=== PATIENT | female | born 1985 | race American Indian/Alaskan Native ===

== ENCOUNTER 2018-08-10 21:57 | Inpatient (IN) | payer MEDICAID ==
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
[2018-08-10 22:40] LABS: HEMOGLOBIN 12.6 g/dL (11.0-16.0); MEAN CELL VOLUME 86.9 fL (81.0-99.0); MEAN CORPUSCULAR HEMOGLOBIN 28.2 pg (27.0-31.0); RBC 4.46 Mil/uL (3.80-5.20); WHITE BLOOD COUNT 7.7 K/uL (4.8-10.8)
[2018-08-10 22:41] LABS: BASO % 0.5 % (0.0-2.0); EOS # 0.1 K/uL (0.0-0.7); EOS % 1.1 % (0.0-4.0); LYMPH # 2.5 K/uL (1.0-4.3); LYMPH % 32.8 % (20.0-40.0); MEAN CORPUSCULAR HGB CONC 32.5 g/dL (33.0-37.0); MEAN PLATELET VOLUME 7.3 fL (7.2-11.7); MONO # 0.5 K/uL (0.0-0.8); MONO % 6.7 % (0.0-10.0); NEUT # 4.6 K/uL (1.8-7.0); NEUT % 58.9 % (50.0-75.0); NRBC % 0.1 % (0.0-2.0)
[2018-08-10 22:52] LABS: ALB/GLOB RATIO 1.4 (1.0-2.1); ALBUMIN 4.2 g/dL (3.5-5.0); ALT/SGPT 17 U/L (9-52); AST/SGOT 22 U/L (14-36); BLOOD UREA NITROGEN 8 mg/dL (7-17); CALCIUM 9.7 mg/dl (8.6-10.4); GFR NON-AFRICAN AMERICAN > 60
[2018-08-10 23:00] LABS: HCG,QUALITATIVE URINE NEGATIVE (NEGATIVE)
[2018-08-10 23:04] LABS: SQUAMOUS EPITHIAL 1 /hpf (0-5); URINE BACTERIA FEW (<OCC); URINE BILIRUBIN NEGATIVE (NEGATIVE); URINE BLOOD NEGATIVE (NEGATIVE); URINE CLARITY Hazy (Clear); URINE COLOR Yellow (YELLOW); URINE GLUCOSE (UA) NORMAL (Normal); URINE LEUKOCYTE ESTERASE NEG Leu/uL (Negative); URINE PROTEIN NEGATIVE (NEGATIVE)
[2018-08-10 23:16] LABS: BARBITURATES, UR NEGATIVE (NEGATIVE); PHENCYCLIDINE, UR NEGATIVE (NEGATIVE)
[2018-08-10 23:17] LABS: BENZODIAZEPINES, UR POSITIVE (NEGATIVE); OPIATES, UR POSITIVE (NEGATIVE)
--- NOTE | 2018-08-11 08:49 | PCM.BM ---
<Shanell Driver Forrest - Last Filed: 08/11/18 08:47> Treatment Plan Problems - Problems identified on initial assessmt Denial Date Initiated: 08/11/18 Assessment reference: NA Status: Active Defensive Coping Date Initiated: 08/11/18 Assessment reference: NA Status: Active Low Motivation to Change Date Initiated: 08/11/18 Assessment reference: NA Status: Active Treatment assets and liabiliti Patient Assests: ADL independent Patient Liabilities: substance abuse - Milieu Protocol Maintain good personal hygiene: daily Encourage regular showers, daily Remind patient to perform daily oral care, daily Assist patient to perform ADL's Maintain personal safety: every shift Educate patient to report safety concerns to staff, every shift Monitor environment for contraband/sharps Medication safety: Monitor for expected outcome, potential side effects: every shift, Assess barriers to learning: every shift, Assess readiness for medication education: every shift <Nichole Jamil - Last Filed: 08/12/18 22:15> - Diagnosis (1) Opioid use disorder, severe, dependence Status: Acute Interventions: 08/12/18 22:14 * Assess 7x/week regarding severity of withdrawal * Educate regarding risks, benefits, side effects and alternatives of medications * Use Motivational Interviewing for abstinence * Use CBT for relapse prevention * Medication management for withdrawal symptoms * Encourage medication assisted treatment (2) Severe benzodiazepine use disorder Status: Acute Interventions: 08/12/18 22:15 * Assess 7x/week regarding severity of withdrawal * Educate regarding risks, benefits, side effects and alternatives of medications * Use Motivational Interviewing for abstinence * Use CBT for relapse prevention * Medication management for withdrawal symptoms * Encourage medication assisted treatment *
[2018-08-11] MEDS ORDERED: Aluminum Hydroxide/Magnesium Hydroxide Susp (30 mL) PO PRN (11:34)
--- NOTE | 2018-08-11 17:44 | PCM.PSYCH ---
Initial Psychiatric Evaluation - Initial Psychiatric Evaluation Type of Admission: Voluntary Legal Status: Capacity Chief Complaint (in patient's own words): I need help for my substance use. History of Present Illness and Precipitating Events: Patient is a 32 years old, , employed as a construction craft laborer, - [place] female with no previous psychiatric history was admitted due to withdrawing from opioid, anxiolytic and cannabis. Patient is still in the observation as patient is not withdrawing. Opioids: Patient is using oxycodone. She started using oxycodone 6 years ago. Currently she is taking 12 tablets age of 30 mg daily[address] Last used yesterday. She took 5 tablets. Longest period of abstinence was 7 months in 2016. She has 2 previous detox at [facility], no rehab. Anxiolytic: Patient started using Xanax 5 years ago. Taking 8 sticks each of 2 mg daily. Last used yesterday. Cannabis: She was guarded about cannabis use. Her UDS was positive for cannabis. Cigarettes: She smokes 1 pack of cigarettes daily and is requesting for nicotine patch. Patient is on community service due to disorderly conduct. She was born in [place] and has high school graduation. She is working in construction. , has 14 years old son. Patient lives with her and son. Her height is 5 feet 6 inches and weight 156 pounds. Current Medications: Active Medications Generic Name Dose Route Start Last Admin Trade Name Freq PRN Reason Stop Dose Admin Al Hydrox/Mg Hydrox/Simethicone 30 ml 08/11/18 11:34 Maalox 30 Ml PO TID PRN Indigestion / Heartburn Clonidine HCl 0.1 mg 08/11/18 02:02 Catapres PO Q6 PRN withdrawal symptoms Dicyclomine HCl 10 mg 08/11/18 11:34 Bentyl PO Q6 PRN Muscle spasm Gabapentin 300 mg 08/11/18 14:00 08/11/18 13:24 Neurontin PO 300 mg TID ALCIDES Administration Hydroxyzine HCl 25 mg 08/11/18 02:04 Atarax PO Q4 PRN Anxiety Ibuprofen 600 mg 08/11/18 11:34 Motrin Tab PO Q6 PRN Pain, moderate (4-7) Loperamide HCl 2 mg 08/11/18 11:34 Imodium PO Q8 PRN Diarrhea Nicotine 1 patch 08/11/18 12:00 08/11/18 13:00 Nicoderm Cq TD 1 patch DAILY ALCIDES Administration Ondansetron HCl 4 mg 08/11/18 11:34 Zofran Tab PO Q8 PRN Nausea/Vomiting Trazodone HCl 50 mg 08/11/18 02:02 08/11/18 02:10 Desyrel PO 50 mg HS PRN Administration insomnia Past Psychiatric History - Past Psychiatric History Previous Treatment History: Inpatient [facility]: [facility] Explanation of prior treatment: Previous detox History of Abuse: None reported History of ETOH/Drug Use: See HPI History of Family Illness: None reported Pertinent Medical Hx (Current Medical&Sleep Prob, Allergies): Allergies Allergy/AdvReac Type Severity Reaction Status Date / Time No Known Allergies Allergy Verified 08/10/18 22:13 No Known Home Med 08/10/18 Review of Systems - Psychiatric Psychiatric: As Per HPI, Anhedonia, Anxiety Mental Status Examination - Personal Presentation Personal Presentation: Looks stated age - Affect Affect: Other (Appropriate) - Motor Activity Motor Activity: Calm - Reliability in Providing Information Reliability in Providing Information: Fair - Speech Speech: Organized - Mood Mood: Anxious - Formal Thought Process Formal Thought Process: No Impairment - Hallucinations/Delusions Hallucinations: Other (None reported) Delusions: Other - Obsessions/Compulsions Obsessions: None Compulsions: None - Cognitive Functions Orientation: Person, Place, Situation, Time Sensorium: Alert Attention/Concentration: Attentive Abstract Thinking: Adrian Estimate of Intelligence: Average Judgement: Intact, as evidence by: Insight regarding need for hospitalization Memory: Recent intact, as evidence by: Ability to recall events of the day, Remote intact, as evidenced by: Ability to recall historical events - Risk Risk: Withdrawal, Diminished functioning - Strength & Assets Inventory Strength & Assets Inventory: Family support, Cooperative - Limitations Limitations: Other (Lives with family) DSM 5 DX - DSM 5 DSM 5 Diagnosis: Opioid use disorder severe Anxiolytic use disorder severe Cannabis use disorder moderate - Recommended/Plan of Treatment Treatment Recommendations and Plan of Treatment: Patient education. Supportive therapy. CBT for relapse prevention. GA for abstinence. Once patient start withdrawing will admit the patient to detox and will start methadone taper for opiate withdrawal symptoms and Librium taper for anxiolytic withdrawal symptoms. Projected ELOS: 4-5 days - Smoking Cessation Smoking Cessation Initiated: Yes
--- NOTE | 2018-08-11 18:39 | CP.PCM.PCO ---
Physician Communication Note - Physician Communication Note Physician Communication Note: Patient is withdrawing, admitted to detox.
--- NOTE | 2018-08-12 09:51 | PCM.PYCHPN ---
Psychiatric Progress Note - Psychiatric Progress Note Patient seen today, length of contact: 17 min Patient Chief Complaint: "I am not OK" Problems Identified/Issues Discussed: The pt is seen, chart reviewed, case is discussed with staff. The pt is compliant with medications and reports no side-effects. Symptoms are improving but needs more time to stabilize and to avoid relapse. Pt attends groups and activities. Support given, psycho-education provided. After care discussed. Medication Change: Yes (detox changes daily) Medical Record Reviewed: Yes Mental Status Examination - Cognitive Function Orientation: Person, Place, Situation, Time Memory: Intact Attention: WNL Concentration: Poor Association: WNL Fund of Knowledge: WNL - Mood Mood: Anxious - Affect Affect: Constricted - Speech Speech: Appropriate - Formal Thought Process Formal Thought Process: No Impairment - Suicidal Ideation Suicidal Ideation: No - Homicidal Ideation Homicidal Ideation: No Goal/Treatment Plan - Goal/Treatment Plan Need for Continued Stay: Discharge may exacerbated symptoms, Severe functional impairment Progress Toward Problem(s) and Goals/Treatment Plan: Continue medications Support and psychoeducation daily Attend groups and activities daily Individual therapy After care planning by DINORA
--- NOTE | 2018-08-13 13:55 | PCM.PYCHPN ---
Psychiatric Progress Note - Psychiatric Progress Note Patient seen today, length of contact: 16 min Patient Chief Complaint: "I am tired" Problems Identified/Issues Discussed: The pt is seen again, chart reviewed, and case is discussed with the team. The pt denies any side-effects from meds. Attends activities and groups, brief individual therapy provided Not ready for discharge due to ongoing symptoms and high relapse risk. After care discussed again. Medication Change: Yes (detox changes daily) Medical Record Reviewed: Yes Mental Status Examination - Cognitive Function Orientation: Person, Place, Situation, Time Memory: Intact Attention: WNL Concentration: Poor Association: WNL Fund of Knowledge: WNL - Mood Mood: Anxious - Affect Affect: Constricted - Speech Speech: Appropriate - Formal Thought Process Formal Thought Process: No Impairment - Suicidal Ideation Suicidal Ideation: No - Homicidal Ideation Homicidal Ideation: No Goal/Treatment Plan - Goal/Treatment Plan Need for Continued Stay: Discharge may exacerbated symptoms, Severe functional impairment Progress Toward Problem(s) and Goals/Treatment Plan: Continue medications Support and psychoeducation daily Attend groups and activities daily Individual therapy After care planning by DINORA
--- NOTE | 2018-08-13 14:09 | RAD ---
HISTORY: rehab admission COMPARISON: None available TECHNIQUE: Chest PA and lateral, 2 views FINDINGS: LUNGS: No focal consolidation. Please note that chest x-ray has limited sensitivity for the detection of pulmonary masses. PLEURA: No significant pleural effusion identified. No definite pneumothorax . CARDIOVASCULAR: The cardiomediastinal silhouette appears within normal limits of size. No atherosclerotic calcification present. OSSEOUS STRUCTURES: No acute osseous abnormality identified. VISUALIZED UPPER ABDOMEN: Unremarkable. OTHER FINDINGS: None. IMPRESSION: No acute findings identified.
[2018-08-13 15:00] VITALS: RESP 18
--- NOTE | 2018-08-14 04:49 | PCM.PYCHDC ---
Mental Status Examination - Mental Status Examination Orientation: Person Discharge Summary - Discharge Note Consultations:: List each consultation separately and include: 1. Reason for request. 2. Findings. 3. Follow-up Summary of Hospital Course include:: 1. Description of specific treatment plan utilized for patients during their course of treatmen. 2. Summarize the time- course for resolution of acute symptoms and/or regressed behaviors. 3. Describe issues identified and worked on during hospitalization. 4. Describe medication utilized. 5. Describe medical problems identified and treated. 6. Reassessment of suicide risk - Final Diagnosis (DSM 5) Condition upon Discharge: STABLE DSM 5: She went to [facility] Disposition: REHAB FACILITY/REHAB UNIT Follow-up Treatment Plan: Continue medications Support and psychoeducation daily Attend groups and activities daily Individual therapy After care planning by DINORA Prescriptions/Medication Reconciliation: Nitrofurantoin Macrocrystals [Macrobid] 100 mg PO Q12H #8 cap traZODone [Desyrel] 50 mg PO HS PRN #30 tab PRN Reason: insomnia
[2018-08-14 06:29] VITALS: BP 94/63; PULSE 71; TEMP 97.4; O2SAT 97
== END 2018-08-14 08:03 | DRG 745 ==
LOC: C.ER 21:57 → C.7D 23:57 → OBSVTOIN 08-11 18:39
PROC: HZ2ZZZZ Detoxification Services for Substance Abuse Treatment (ICD-10-PCS; principal; 2018-08-11)
PROC: HZ81ZZZ Medication Management for Substance Abuse Treatment, Methadone Maintenance (ICD-10-PCS; 2018-08-11)
PROC: HZ80ZZZ Medication Management for Substance Abuse Treatment, Nicotine Replacement (ICD-10-PCS; 2018-08-11)
PROC: HZ56ZZZ Individual Psychotherapy for Substance Abuse Treatment, Psychoeducation (ICD-10-PCS; 2018-08-11)
DX: F11.23 Opioid dependence with withdrawal (principal); F13.20 Sedative, hypnotic or anxiolytic dependence, uncomplicated; F12.10 Cannabis abuse, uncomplicated; F17.210 Nicotine dependence, cigarettes, uncomplicated; Z82.49 Family history of ischemic heart disease and other diseases of the circulatory system